=== PATIENT | female | born 1960 | race Caucasian/White ===

== ENCOUNTER → 2017-03-09 | Day surgery (SDC) | payer OTHER ==
[~2017-03-09] VITALS: Ht 152.4 cm; Wt 95.3 kg
[~2017-03-09] MED LIST: ALLOPURINOL100 MG PO; FIBER CHOICE1 CTB PO; HYDROCODONE/ACE1 TA1 PO; HYDRODIURIL 2525 MG PO; MEDROL DOSEPAK1 PAC PO; POTASSIUM CITR10 MEQ PO; VALIUM5 M1 PO
--- NOTE | 2017-03-10 14:17 | RADIOLOGY REPORT ---
EXAMINATION: XR ABDOMEN CLINICAL INDICATION: Bilateral ureteroscopy and retrograde nephroureterograms in the operating room. COMPARISON: [facility]UB 01/31/2017. TECHNIQUE: 20 intraoperative fluoroscopic spot views are provided. FLUOROSCOPY TIME: 47 seconds. FINDINGS: There is retrograde placement of a catheter into the left calyces with injection of contrast. A retrograde right nephroureterogram was performed. IMPRESSION: Bilateral retrograde nephroureterograms and left ureteroscopy. Refer to the operative notes for details.
--- NOTE | 2017-03-14 13:02 | Operative Report ---
Operative/Inv Procedure Report Surgery Date: 03/09/17 Name of Procedure: cystoscopy: left flexible ureteroscopy, laser standby, retrograde pyelogram with fluoroscopy Pre-Operative Diagnosis: left renal stones with severe colic Post-Operative Diagnosis: multiple stones IMBEDDED and sealed with TCC lining-inoperable with ESWL or laser litho or basket extraction Estimated Blood Loss: scant (sa) Surgeon/International Accountant: Kiel Rodriguez MD Anesthesia: laryngeal mask airway Specimens: none Complications: none Operative/Procedure Note Note: The patient was taken to the operating room and placed on the OR table in supine position. Timeout was performed, with the patient awake, in order to confirm correct identity, procedure, laterality, and other pertinent russ-operative information. After adequate anesthesia and antibiotics, the patient was then placed in lithotomy stirrups, draped and prepped in the usual surgical fashion. The Holmium Yag Laser was confirmed in the room and on standby. A 22 Divehi cystoscope sheath with 30 angle lens was inserted into the bladder without difficulty. Upon entering the bladder, the bladder was noted to be free of tumor , and free of stone. Both orifices were in their orthotopic position, with clear efflux of urine from the right. The left ureter orifice was intubated with an 8fr cone-tip catheter and a retrograde pyelogram with fluoroscopy was performed revealing mild hydronephrosis, but no filling defects. The cone-tipped catheter was removed, followed by insertion of a 0.035 Glidewire, which was advanced into the left renal pelvis without difficulty, with fluoroscopic visualization. Leaving the Glidewire in place, the cystoscope was removed. The Flexible ureteroscope was railroaded over the gluidewire, following it with fluoroscopic visualization, into the bladder, up the left ureter, and into the left renal pelvis, with fluoroscopy visualization. A retrograde pyelogram was again performed via the ureteroscope revealing no filling defect, normal appearing left renal anatomy. Pyeloscopy/calyxoscopy of the upper, middle, and lower poles reveal no evidence of tumor, no evidence of operable stones (see findings). Additionally, NO additional stones, nor any tumor, was visualized in the renal pelvis. At this point the standby laser was disengaged. The entire length of the ureter was also visualized carefully on the way out, and the same findings (no stones or tumor) was confirmed. The bladder was then drained after the ureteroscope was removed. The patient tolerated the procedure well was then taken to the recovery room in satisfactory condition. She is to follow up in 4-6 weeks for POC. Findings: imbedded stones in renal parenchyma-not surgically reachable. Discharge Disposition: Same Day Admissions CC: Michael SMITH,Kiel
== END ==
LOC: STS 03:06
DX: N13.2 Hydronephrosis with renal and ureteral calculous obstruction (principal)
CPT/HCPCS: 74000; J2250

== ENCOUNTER → 2017-05-25 | Day surgery (SDC) | payer OTHER ==
[~2017-05-25] VITALS: Ht 170.2 cm; Wt 95.3 kg
[2017-05-25 08:51] LABS: ABSOLUTE BASOPHIL COUNT 0 /CUMM (0.0-0.2); ABSOLUTE EOSINOPHIL COUNT 0 /CUMM (0.0-0.7); ABSOLUTE GRANULOCYTE CT 2.8 /CUMM (1.4-6.5); ABSOLUTE LYMPH COUNT 2.1 /CUMM (1.2-3.4); ABSOLUTE MONOCYTE COUNT 0.4 /CUMM (0.10-0.60); BASOPHIL % 0.7 % (0.0-2.0); EOSINOPHIL % 0.3 % (0-5); GRANULOCYTE % 52.9 % (42.2-75.2); HEMATOCRIT 40.5 % (37-47); MEAN CORPUSCULAR HGB 31.5 PG (27.0-31.0); MEAN CORPUSCULAR HGB CONC 34.1 G/DL (33.0-37.0); MEAN CORPUSCULAR VOLUME 92.3 FL (81.0-99.0); MEAN PLATELET VOLUME 8.6 FL (7.4-10.4); PLATELET COUNT 287 /CUMM (130-400); RBC DISTRIBUTION WIDTH 13.6 % (11.5-14.5); RED BLOOD CELL CT 4.39 /CUMM (4.20-5.40); WHITE BLOOD CELL COUNT 5.4 /CUMM (4.8-10.8)
--- NOTE | 2017-05-25 10:19 | Operative Report ---
Operative/Inv Procedure Report Surgery Date: 05/25/17 Name of Procedure: Cystoscopy. Right retrograde pyelogram. Right flexible ureteroscopy. Fluoroscopy. Pre-Operative Diagnosis: Severe right renal colic. Post-Operative Diagnosis: Same Estimated Blood Loss: scant Surgeon/Hospital Cleaner: Kiel Rodriguez MD Anesthesia: laryngeal mask airway Drains: None Specimens: None Complications: None Operative/Procedure Note Note: The patient was taken to the operating room and placed on the OR table in supine position. Timeout was performed, with the patient awake, in order to confirm correct patient, procedure, laterality, and other pertinent information with pt. awake. After adequate anesthesia, and antibiotics, the patient was then placed in yellow-fin lithotomy stirrups, draped and prepped in the usual surgical fashion. A 22 Portuguese cystoscope sheath with 30 angle lens was inserted into the bladder without difficulty. Upon entering the bladder, the bladder was noted to be free of tumor, free of stone. Both orifices were in their orthotopic position. The right ureter orifice was intubated with an 8fr cone-tip catheter and a retrograde pyelogram with fluoroscopy was performed. No filling defect was seen. The cone-tipped catheter was removed, followed by insertion of a 0.035 Glidewire , which was advanced into the right renal pelvis without difficulty. Placement was confirmed on fluoroscopy. Leaving the Glidewire in place, and the flexible ureteroscope was railroaded over the gluidewire into the bladder. The flexible ureteroscope was advanced up the right ureter with fluoroscopy visualization, over the gluidewire. Pyeloscopy and calyxoscopy, of the upper, middle, and lower poles reveal no evidence of tumor. Multiple crystalline plaques were noted in all calyces beneath the mucosal lining, therefore on reachable. No free-floating stones were seen. No obstruction was seen. The entire length of the ureter was also visualized carefully on the way out revealing no additional stone, and no tumor. The bladder was then drained at the end of the case. All sponge needle and instrument count were correct at the end of the case. The patient tolerated the procedure well, and was then taken to the recovery room in satisfactory condition. Findings: Multiple small stones seen submucosally in all papillae. No stone was free floating, nor obstructing. Discharge Disposition: PACU CC: Kiel Rodriguez MD
--- NOTE | 2017-05-25 19:46 | RADIOLOGY REPORT ---
EXAMINATION: CR ABDOMEN/INTRAOPERATIVE FLUOROSCOPY CLINICAL INDICATION: Right ureteroscopy, retrograde pyelogram. COMPARISON: Prior exam dated 03/09/2017. TECHNIQUE/FINDINGS: Fluoroscopic equipment was dedicated to the operating room for the performance of an intraoperative procedure. Several (6) spot films were acquired and are archived in PACS. Please refer to operative notes for procedural detail. FLUOROSCOPY TIME: 48 seconds. IMPRESSION: Administrative dictation for intraoperative fluoroscopy and image archiving in PACS. Please refer to operative notes for details.
== END ==
LOC: STS 03:23
PROVIDERS: Urology
DX: N20.0 Calculus of kidney (principal); Z87.442 Personal history of urinary calculi
CPT/HCPCS: 36415; 74018; 93005; 93010; J1100; J1885; J2250; J2405